=== PATIENT | male | born 1965 ===

== ENCOUNTER → 2023-10-02 01:37 | Outpatient (CLI) | payer OTHER, SELFPAY ==
--- NOTE | 2023-10-02 | DI.RAD_ITS ---
Exam(s) XR CERVICAL SP BAHENA TRAUMA 2-3V EXAM: XR CERVICAL SP BAHENA TRAUMA 2-3V CLINICAL HISTORY: DISABILITY DETERMINATION,STATE DEGREE OF DEGENERATION,Z02.71,NECK,ARM PAIN. TECHNIQUE: 2D digital imaging was performed. Three views. COMPARISON: No exams were available for comparison FINDINGS: BONES: Severe dental disease. Vertebral bodies are normal in height minimal endplate osteophytes. M ild facet degenerative changes.. 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 Intervertebral disc spaces are maintained. ALIGNMENT: Cervical spinal alignment is within normal limits. The odontoid and atlantoaxial articulat ions are normal. SOFT TISSUE: Normal. The lung apices are clear. IMPRESSION: Mild degenerative changes. DATA REPOSITORY: RADIATION DOSE DELIVERED:
--- NOTE | 2023-10-02 | DI.RAD_ITS ---
Exam(s) XR LUMBAR SPINE AP, LAT EXAM: XR LUMBAR SPINE AP, LAT CLINICAL HISTORY: DISABILITY DETERMINATION,STATE DEGREE OF DEGENERATION,Z02.71,BACK PAIN,H/O. TECHNIQUE: 2D digital imaging was performed. Five views. COMPARISON: No exams were available for comparison FINDINGS: BONES: No fracture or destructive lesion. Vertebral body heights are maintained. Mild facet hypertro phy identified. DISKS: Mild to moderate loss disc height at L5-S1. The intervertebral disc spaces are maintained. ALIGNMENT: Lumbar spinal alignment is within normal limits. SOFT TISSUE: Aorta shows ossification and is normal in diameter. IMPRESSION: Lcna-ur-[id number] disc space narrowing at L5-S1. Mild facet degenerative changes. DATA REPOSITORY: RADIATION DOSE DELIVERED:
== END ==
PROVIDERS: Visit Provider Pediatrics Pediatric Rheumatology
DX: M51.36 Other intervertebral disc degeneration, lumbar region (principal); Z02.71 Encounter for disability determination
CPT/HCPCS: 72040; 72100